=== PATIENT | male | born 1965 | race Caucasian/White ===

== ENCOUNTER 2019-08-28 16:42 | Emergency (ER) | payer OTHER, SELFPAY ==
--- NOTE | 2019-08-28 16:47 | ED.GENADULT ---
HPI - General Adult General Chief complaint: Dental/Oral Stated complaint: Tooth pain Time Seen by Provider: 08/28/19 16:59 Source: patient Mode of arrival: ambulatory Limitations: no limitations History of Present Illness HPI narrative: 54-year-old male patient presents to the [facility] with complaints of dental pain for the past 2 days. Patient states he broke a tooth to the right lower side about 2 years ago and states he had it shaved down has not given him any problems until recently. Patient states that 2 days ago he was eating popcorn and part of the tooth fell off causing pain. Patient states that he did try and go [id number] and get some temporary dental putty to put over it to make a feeling. Patient states it is very painful especially when he tries to eat or put any pressure on the tooth itself. Denies any fevers. Denies any trouble swallowing or shortness of breath. Patient states he has been taking Tylenol for symptoms. Patient states due to the coronavirus pandemic at this time he is unable to get into a dentist without being seen by urgent care first. Related Data Home Medications Medication Instructions Recorded Confirmed Humulin N NPH Insulin KwikPen 08/28/19 lisinopril 08/28/19 metformin 08/28/19 Allergies Allergy/AdvReac Type Severity Reaction Status Date / Time rimantadine [From Flumadine] AdvReac Agitated Verified 08/28/19 16:59 Review of Systems Review of Systems: Narrative: CONSTITUTIONAL: Denies fever, chills, or sweats. EYES: Denies visual changes, redness, or discharge. ENT: Denies rhinorrhea, congestion, sore throat, or otalgia. Positive right lower dental pain x2 days CARDIOVASCULAR: Denies chest pain, palpitations, or edema. RESPIRATORY: Denies cough or dyspnea. GASTROINTESTINAL: Denies abdominal pain, nausea, vomiting, or diarrhea. GENITOURINARY: Denies dysuria or hematuria. SKIN: Denies rash or itching. MUSCULOSKELETAL: Denies back pain, joint pain, or myalgia. NEUROLOGIC: Denies headache, numbness, or weakness. PSYCHIATRIC: Denies anxiety or depression. PMFSH Comments At the time of my signature I agree with nursing past medical history, surgical, social, and family history. There is no relevant family history pertinent to the presenting complaint. Exam Narrative: Exam Narrative: GENERAL: Well-appearing, well-nourished, and in no acute distress. HEAD: Normocephalic, atraumatic. EYES: PERRLA and EOMI. ENT: Nares clear, no rhinorrhea or epistaxis. Mucous membranes moist. Patient does have a fractured bicuspid on the right lower side. There is what appears to be some nerve endings exposed. Patient does have some democrat over the area at this time. There is slight erythema noted to the gum area around the tooth. NECK: Supple. No lymphadenopathy CHEST: Clear to auscultation. No respiratory distress. HEART: Regular rate and rhythm. No murmur heard. Normal peripheral pulses. ABDOMEN: Soft, nontender, nondistended, normal active bowel sounds. EXTREMITIES: Normal range of motion. No edema. SKIN: Warm, dry, no rash. NEURO: No focal deficits. Alert and oriented x3. Course Vital Signs Vital signs: Vital Signs Temperature 37.1 C 08/28/19 16:55 Pulse Rate 78 08/28/19 16:55 Respiratory Rate 16 08/28/19 16:55 Blood Pressure 172/90 H 08/28/19 16:55 Pulse Oximetry 98 08/28/19 16:55 Temperature 37.1 C 08/28/19 16:55 Pulse Rate 78 08/28/19 16:55 Respiratory Rate 16 08/28/19 16:55 Blood Pressure 172/90 H 08/28/19 16:55 Pulse Oximetry 98 08/28/19 16:55 Vital signs reviewed The patient has been informed that they may have pre-hypertension or Hypertension based on a BP reading in the department. I recommend that the patient call the primary care provider listed on their discharge instructions or a physician of their choice this week to arrange follow up for further evaluation of possible pre-hypertension or Hypertension Medical Decision Making Dif
[2019-08-28 16:55] VITALS: BP 172/90; PULSE 78; RESP 16; TEMP 37.1; O2SAT 98
== END 2019-08-28 17:12 | disposition home or self-care (01) ==
PROVIDERS: Emergency Provider Nurse Practitioner Family
DX: K03.81 Cracked tooth (principal); K02.9 Dental caries, unspecified; I10 Essential (primary) hypertension; E11.9 Type 2 diabetes mellitus without complications; E78.00 Pure hypercholesterolemia, unspecified; Z79.4 Long term (current) use of insulin
CPT/HCPCS: 99203; G0463